=== PATIENT | female | born 1990 | race Caucasian/White ===

== ENCOUNTER → 2016-08-28 | Outpatient (CLI) | payer OTHER ==
[2016-08-28 11:59] LABS: BASO # 0.2 K/mm3 (0.0-0.2); BASO % 2.3 % (0.0-1.0); EOS # 0.1 K/mm3 (0.0-0.50); EOS % 1.9 % (0.0-3.0); LARGE UNSTAINED CELL # 0.1 K/mm3 (0.0-0.4); LARGE UNSTAINED CELL % 0.8 % (0.0-4.0); LYMPH # 1.7 K/mm3 (1.5-6.5); LYMPH % 23.9 % (24.0-44.0); MEAN CORPUSCULAR HEMOGLOBIN 28.7 pg (27.0-33.0); MEAN CORPUSCULAR HGB CONC 32.2 g/dl (32.0-36.5); MEAN CORPUSCULAR VOLUME 89.1 fl (80.0-96.0); MONO # 0.4 K/mm3 (0.0-0.8); MONO % 5.1 % (0.0-5.0); NEUTROPHILS # 4.6 K/mm3 (1.8-7.7); NEUTROPHILS % 65.9 % (36.0-66.0); PLATELET COUNT, AUTOMATED 206 k/mm3 (150-450); RED CELL DISTRIBUTION WIDTH 13.4 % (11.5-14.5)
[2016-08-28 12:24] LABS: ERYTHROCYTE SEDIMENTATION RATE 8 mm/hr (0-20)
[2016-08-30 00:06] LABS: Lyme Disease IgG/IgM Antibodie <0.91 ISR (0.00-0.90); Lyme Disease IgM Ab Quantitati <0.80 index (0.00-0.79)
== END | disposition home or self-care (01) ==
LOC: M SMT 08:24
PROVIDERS: ATTEND Physician Assistant
DX: M79.671 Pain in right foot (principal); N92.6 Irregular menstruation, unspecified; E55.9 Vitamin D deficiency, unspecified

== ENCOUNTER → 2016-08-28 | Outpatient (CLI) | payer OTHER ==
[2016-08-28 12:01] LABS: BASO # 0.2 K/mm3 (0.0-0.2); BASO % 2.6 % (0.0-1.0); EOS # 0.2 K/mm3 (0.0-0.50); EOS % 2.2 % (0.0-3.0); LARGE UNSTAINED CELL # 0.1 K/mm3 (0.0-0.4); LARGE UNSTAINED CELL % 0.7 % (0.0-4.0); LYMPH # 1.6 K/mm3 (1.5-6.5); LYMPH % 23.9 % (24.0-44.0); MEAN CORPUSCULAR HEMOGLOBIN 29.2 pg (27.0-33.0); MEAN CORPUSCULAR HGB CONC 32.8 g/dl (32.0-36.5); MONO # 0.3 K/mm3 (0.0-0.8); MONO % 4.7 % (0.0-5.0); NEUTROPHILS # 4.3 K/mm3 (1.8-7.7); NEUTROPHILS % 65.9 % (36.0-66.0); PLATELET COUNT, AUTOMATED 203 k/mm3 (150-450); RED CELL DISTRIBUTION WIDTH 13.5 % (11.5-14.5); WHITE BLOOD COUNT 6.6 K/mm3 (4.0-10.0)
== END ==
LOC: M SMT 08:22
PROVIDERS: ATTEND Family Medicine
DX: N92.6 Irregular menstruation, unspecified (principal); E55.9 Vitamin D deficiency, unspecified

== ENCOUNTER → 2017-06-17 | Outpatient (REF) | payer OTHER | LOC: M SFHCADAM 13:14 | PROVIDERS: ATTEND Family Medicine | DX: Z01.419 Encounter for gynecological examination (general) (routine) without abnormal findings (principal) ==

== ENCOUNTER → 2018-01-06 | Outpatient (REF) | payer OTHER ==
[2018-01-07 11:46] LABS: ALBUMIN 3.7 GM/DL (3.2-5.2); ALBUMIN/GLOBULIN RATIO 0.93 (1.00-1.93); ALKALINE PHOSPHATASE 58 U/L (45-117); ALT/SGPT 26 U/L (12-78); ANION GAP 9 MEQ/L (8-16); AST/SGOT 14 U/L (7-37); BILIRUBIN,TOTAL 0.4 MG/DL (0.2-1.0); BLOOD UREA NITROGEN 9 MG/DL (7-18); CALCIUM LEVEL 9.2 MG/DL (8.5-10.1); CARBON DIOXIDE LEVEL 24 MEQ/L (21-32); CHLORIDE LEVEL 107 MEQ/L (98-107); CREATININE FOR GFR 0.88 MG/DL (0.55-1.30); GLOMERULAR FILTRATION RATE > 60.0 (>60); GLUCOSE, FASTING 79 MG/DL (70-100); POTASSIUM SERUM 3.8 MEQ/L (3.5-5.1); SODIUM LEVEL 140 MEQ/L (136-145); TOTAL PROTEIN 7.7 GM/DL (6.4-8.2)
== END ==
LOC: M LAB REF 10:58
DX: M32.9 Systemic lupus erythematosus, unspecified (principal)
CPT/HCPCS: 80053

== ENCOUNTER → 2018-01-06 | Outpatient (REF) | payer OTHER ==
[2018-01-07 11:52] LABS: ALT/SGPT 25 U/L (12-78); AST/SGOT 13 U/L (7-37); CREATININE FOR GFR 0.91 MG/DL (0.55-1.30); GLOMERULAR FILTRATION RATE > 60.0 (>60)
[2018-01-07 12:28] LABS: HEMATOCRIT 40.9 % (36.0-47.0); HEMOGLOBIN 13.6 g/dl (12.0-15.5); MEAN CORPUSCULAR HEMOGLOBIN 28.8 pg (27.0-33.0); MEAN CORPUSCULAR HGB CONC 33.3 g/dl (32.0-36.5); MEAN CORPUSCULAR VOLUME 86.7 fl (80.0-96.0); PLATELET COUNT, AUTOMATED 279 10^3/uL (150-450); RED BLOOD COUNT 4.72 10^6/uL (4.00-5.40); RED CELL DISTRIBUTION WIDTH 13.3 % (11.5-14.5); WHITE BLOOD COUNT 7.9 10^3/uL (4.0-10.0)
== END ==
LOC: M LAB REF 11:00
DX: Z79.899 Other long term (current) drug therapy (principal); M32.9 Systemic lupus erythematosus, unspecified
CPT/HCPCS: 84460

== ENCOUNTER → 2018-03-06 | Outpatient (CLI) | payer OTHER | LOC: M ADAMS 10:54 | DX: M32.9 Systemic lupus erythematosus, unspecified (principal) | CPT/HCPCS: 71046 ==

== ENCOUNTER → 2018-07-13 | Outpatient (REF) | payer OTHER | LOC: M SFHCPLAZ 17:34 | PROVIDERS: ATTEND Dermatology | DX: D23.0 Other benign neoplasm of skin of lip (principal) ==

== ENCOUNTER → 2018-12-29 | Outpatient (CLI) | payer OTHER ==
--- NOTE | 2018-12-29 15:26 | REP ---
RIGHT KNEE, FIVE VIEWS: HISTORY: Knee pain. There is no acute fracture or dislocation. The joint spaces are normal in appearance. IMPRESSION: There is no acute fracture or dislocation. Electronically Signed by Jim Pimentel MD 12/29/2018 03:33 P
== END ==
LOC: M ADAMS 13:59
PROVIDERS: ATTEND Family Medicine
DX: M25.561 Pain in right knee (principal)
CPT/HCPCS: 73564; G0463

== ENCOUNTER 2019-03-22 23:11 | Emergency (ER) | payer OTHER ==
[~2019-03-22] VITALS: Ht 167.6 cm; Wt 95.6 kg
[2019-03-22 23:12] VITALS: BP 139/79
--- NOTE | 2019-03-23 00:07 | REPVR ---
EXAM: US Duplex Right Lower Extremity Veins, Limited EXAM DATE/TIME: 03/22/2019 11:38 PM CLINICAL HISTORY: 29 years old, female; Pain; Leg, lower; Right; Additional info: R/O dvt TECHNIQUE: Imaging protocol: Real-time Duplex ultrasound of the Right Lower Extremity with 2-D rubin scale, color Doppler flow and spectral waveform analysis with image documentation. Limited exam was focused on the right lower extremity veins. COMPARISON: No relevant prior studies available. FINDINGS: Right deep veins: Unremarkable. The common femoral, femoral and popliteal veins are patent without thrombus. Normal Doppler waveforms. Normal compressibility and/or augmentation response. Right superficial veins: Unremarkable. Saphenofemoral junction is patent without thrombus. Soft tissues: Unremarkable. IMPRESSION: No sonographic evidence of deep vein thrombosis. Electronically signed by: Richard Oconnor On 03/23/2019 00:06:58 AM
== END 2019-03-23 01:14 | disposition home or self-care (01) ==
LOC: M ED 23:11
DX: S86.911A Strain of unspecified muscle(s) and tendon(s) at lower leg level, right leg, initial encounter (principal); X58.XXXA Exposure to other specified factors, initial encounter; Y92.89 Other specified places as the place of occurrence of the external cause; M32.9 Systemic lupus erythematosus, unspecified

== ENCOUNTER → 2019-09-21 | Outpatient (REF) | payer OTHER ==
[2019-09-21 13:44] LABS: TOTAL 25(OH) VITAMIN D 15.3 NG/ML (30.0-100.0)
== END ==
LOC: M SFHCADAM 09:23
PROVIDERS: ATTEND Family Medicine
DX: N92.3 Ovulation bleeding (principal); R11.0 Nausea; M32.9 Systemic lupus erythematosus, unspecified

== ENCOUNTER → 2019-10-25 | Outpatient (REF) | payer OTHER ==
[2019-10-25 18:09] LABS: HEMOGLOBIN 15.2 g/dl (12.0-15.5); MEAN CORPUSCULAR HEMOGLOBIN 29.1 pg (27.0-33.0); RED BLOOD COUNT 5.23 10^6/uL (4.00-5.40)
[2019-10-25 19:26] LABS: CHLAMYDIA DNA AMPLIFICATION NEGATIVE (NEGATIVE); GC DNA AMPLIFICATION NEGATIVE (NEGATIVE)
[2019-10-26 11:27] LABS: HEPATITIS B SURFACE ANTIGEN NEGATIVE (NEGATIVE); HEPATITIS C VIRUS ABY INDEX 0.1 INDEX (<0.8); HIV 1&2 SCREEN CENTAUR NEGATIVE (NEGATIVE); RUBELLA IgG QUALITATIVE IMMUNE (IMMUNE)
== END ==
LOC: M PLALAB 15:20
PROVIDERS: ATTEND Advanced Practice Midwife
DX: Z34.01 Encounter for supervision of normal first pregnancy, first trimester (principal)

== ENCOUNTER → 2019-11-16 | Outpatient (CLI) | payer OTHER | LOC: M PLALAB 14:57 | PROVIDERS: ATTEND Advanced Practice Midwife | DX: Z34.82 Encounter for supervision of other normal pregnancy, second trimester (principal) ==

== ENCOUNTER → 2019-12-27 | Outpatient (CLI) | payer OTHER ==
--- NOTE | 2019-12-28 02:44 | REP ---
Clinical: Anatomical evaluation. Comparison: None . Findings: Examination demonstrates a single live intrauterine in cephalic presentation. motion is identified by technologist. Placenta is noted posterior, grade I, and low-lying without evidence for abruption. Amniotic fluid volume is normal. Cervix measures 3.9 cm in length and appears closed. No evidence for nuchal cord. Gestational age by LMP 20 weeks 5 days with ALMA 05/10/2020 . Gestational age by current measurements 20 weeks 3 days with ALMA 05/12/2020 . FHR equals 146 beats per minute. BPD 4.7 cm 20 weeks 1 day HC 17.8 cm 20 weeks 2 days AC 14.9 cm 20 weeks 1 day FL 3.7 cm 21 weeks 4 days HL 3.3 cm 21 weeks 2 days HC/AC ratio 1.20 Estimated weight 374 grams ( 48th percentile). Anatomical assessment demonstrates normal structures including cranium, choroid plexus, cavum, cerebellum/posterior fossa, facial features, lungs, four-chamber heart/ventricular outflow tracts, diaphragm, stomach, cord insertion/three-vessel cord, kidneys/bladder, spine, and extremities. Impression: 1. Posterior grade one low-lying placenta 1.3 cm from the closed internal os. 2. Live intrauterine in cephalic presentation demonstrating appropriate interval growth. 3. Anatomical assessment is complete and normal.
== END ==
LOC: M WHC 07:53
PROVIDERS: ATTEND Advanced Practice Midwife
DX: Z34.02 Encounter for supervision of normal first pregnancy, second trimester (principal)

== ENCOUNTER → 2020-02-03 | Outpatient (CLI) | payer OTHER ==
--- NOTE | 2020-02-03 11:15 | REP ---
OB ULTRASOUND: Real-time sonographic evaluation of gravid uterus performed utilizing transabdominal and endovaginal technique. There is a single living intrauterine gestation. Estimated gestational age is reportedly 26 weeks 1 day, EDC 05/10/2020. The heart rate is 136 beats per minute. The cervix is closed and measures 3.8 cm in length. position is breech. The placenta is posterior and grade 0 with no previa or abruption. Amniotic fluid appears within normal limits. Edge of the placenta is 3.3 cm from the internal cervical os.
== END ==
LOC: M WHC 08:05
PROVIDERS: ATTEND Advanced Practice Midwife
DX: Z36.89 Encounter for other specified antenatal screening (principal); Z3A.26 26 weeks gestation of pregnancy
CPT/HCPCS: 36415; 76815; 76817; 82950; 85027; 86850; 86900; 86901; J2790

== ENCOUNTER → 2020-02-03 | Outpatient (REF) | payer OTHER ==
[2020-02-03 11:57] LABS: HEMATOCRIT 40.2 % (36.0-47.0); HEMOGLOBIN 13.1 g/dl (12.0-15.5); MEAN CORPUSCULAR HEMOGLOBIN 29.6 pg (27.0-33.0); MEAN CORPUSCULAR HGB CONC 32.6 g/dl (32.0-36.5); MEAN CORPUSCULAR VOLUME 90.7 fl (80.0-96.0); PLATELET COUNT, AUTOMATED 229 10^3/uL (150-450); RED BLOOD COUNT 4.43 10^6/uL (4.00-5.40)
== END ==
LOC: M PLALAB 08:45
PROVIDERS: ATTEND Advanced Practice Midwife
DX: Z36.89 Encounter for other specified antenatal screening (principal)

== ENCOUNTER → 2020-03-14 | Outpatient (CLI) | payer OTHER ==
[~2020-03-14] MED LIST: ASPI81CH33 PO; MULTTAB20 PO; PLAQ200T4 PO
--- NOTE | 2020-04-06 10:52 | REP ---
OBSTETRICAL ULTRASOUND CLINICAL: Growth evaluation. COMPARISON: 02/03/2020. TECHNIQUE: Transabdominal obstetrical ultrasound with color Doppler evaluation. FINDINGS: Ultrasound examination demonstrates single live advanced gestation in breech presentation. motion was identified by the technologist. heart rate equals 146 beats per minute. Placenta noted posteriorly, grade 2, and without placenta previa or abruption. Amniotic fluid volume is normal (LYSSA equals 10.9 cm). Cervix measures 4.1 cm in length and appears closed. Gestational age by current biometrical measurements 32 weeks 0 days with estimated date of delivery 05/09/2020. Estimated weight 1768 grams (27th percentile). IMPRESSION: Single live advanced gestation in breech presentation demonstrating appropriate estimated weight and growth. MTDD
== END ==
LOC: M WHC 16:02
PROVIDERS: ATTEND Advanced Practice Midwife
DX: O26.893 Other specified pregnancy related conditions, third trimester (principal); M32.9 Systemic lupus erythematosus, unspecified; Z3A.32 32 weeks gestation of pregnancy; O32.1XX0 Maternal care for breech presentation, not applicable or unspecified
CPT/HCPCS: 76815; G0463

== ENCOUNTER → 2020-04-04 | Outpatient (CLI) | payer OTHER ==
--- NOTE | 2020-04-12 15:49 | REP ---
LIMITED OBSTETRICAL ULTRASOUND CLINICAL: Growth evaluation. COMPARISON: 03/14/2020. TECHNIQUE: Transabdominal obstetrical ultrasound with color Doppler evaluation. FINDINGS: Ultrasound examination demonstrates a single live intrauterine in breech presentation. motion was identified by the technologist. Placenta noted posteriorly, grade 2, and without placenta previa or abruption. Cervix measures 3.4 cm in length and appears closed. Amniotic fluid volume is normal. LYSSA equals 10.8 cm. heart rate equals 135 beats per minute. MEASUREMENTS: BPD 85 mm 34 weeks 1 day HC 324 mm 36 weeks 5 days AC 292 mm 33 weeks 2 days FL 71.7 mm 36 weeks 6 days HL 63.4 mm 36 weeks 6 days Estimated weight 2480 grams (40th percentile). IMPRESSION: 1. Single live advanced gestation in breech presentation demonstrating appropriate estimated weight and growth. 2. Amniotic fluid volume normal. MTDD
== END ==
LOC: M WHC 15:03
PROVIDERS: ATTEND Advanced Practice Midwife
DX: O32.1XX0 Maternal care for breech presentation, not applicable or unspecified (principal); Z3A.36 36 weeks gestation of pregnancy

== ENCOUNTER → 2020-04-12 | Outpatient (REF) | payer OTHER | LOC: M LAB REF 16:52 | PROVIDERS: ATTEND Advanced Practice Midwife | DX: Z34.80 Encounter for supervision of other normal pregnancy, unspecified trimester (principal); Z3A.00 Weeks of gestation of pregnancy not specified ==

== ENCOUNTER 2020-04-29 05:41 | Inpatient (IN) | payer OTHER ==
[~2020-04-29] VITALS: Ht 167.6 cm; Wt 102.7 kg
[2020-04-29] MEDS ORDERED: LACTATED RINGER'S 1000 ML IV STA (06:44)
[2020-04-29] MEDS ORDERED: LR 1,000 ML IV SCH ×2 (06:44→09:45)
[2020-04-29] MEDS ORDERED: ceFAZolin SOD 2 GM in IV 1 EA IV ONE (06:45)
[2020-04-29] MEDS ORDERED: BICITRA 30ML SOLN UDC PO ONE (06:45)
[2020-04-29 07:03] LABS: HEMOGLOBIN 13.4 g/dl (12.0-15.5); MEAN CORPUSCULAR HGB CONC 31.9 g/dl (32.0-36.5); MEAN CORPUSCULAR VOLUME 87.7 fl (80.0-96.0); PLATELET COUNT, AUTOMATED 220 10^3/uL (150-450); RED BLOOD COUNT 4.79 10^6/uL (4.00-5.40); WHITE BLOOD COUNT 10.5 10^3/uL (4.0-10.0)
[2020-04-29] MEDS ORDERED: ONDANSETRON 4MG/2ML VIAL As Ordered ONE (08:10)
[2020-04-29] MEDS ORDERED: MORPHINE PRES-FREE INJ 10 MG/10 ML VIAL (J2274) As Ordered ONE (08:10)
[2020-04-29] MEDS ORDERED: OXYTOCIN INJ 10 UNITS/ML VIAL (J2590) As Ordered ONE (08:23)
[2020-04-29] MEDS ORDERED: ePHEDrine SULFATE 25 MG/5 ML(5MG/ML) SYRINGE As Ordered ONE (08:29)
[2020-04-29] MEDS ORDERED: MEPERIDINE 50 MG/ML 1ML VIAL (J2175) As Ordered ONE (08:42)
[2020-04-29] MEDS ORDERED: KETOROLAC 60MG 2ML VIAL As Ordered ONE (09:05)
[2020-04-29] MEDS ORDERED: PERCOCET 5MG/325MG TAB PO PRN (09:15)
[2020-04-29] MEDS ORDERED: MEASLES,MUMPS,RUBELLA VACCINE INJ (MMR-II) (90707) SC SCH (09:15)
[2020-04-29] MEDS ORDERED: RHOGAM 300 MCG (1500 IU) INJ (J2790) IM SCH (09:15)
[2020-04-29] MEDS: LR 1,000 ML IV SCH ×2 (09:30→13:48)
[2020-04-29] MEDS ORDERED: OXYTOCIN DRIP 30 UNITS in IV 1 EA IV SCH (09:30)
[2020-04-29] MEDS ORDERED: OXYTOCIN 30 UNITS IN 0.9% NaCl 500ML IV BAG (J2590) As Ordered ONE (09:30)
[2020-04-29] MEDS ORDERED: METOCLOPRAMIDE INJ 10MG/2ML VIAL (J2765 PER 1) IV PRN (09:45)
[2020-04-29] MEDS ORDERED: fentaNYL 100 MCG/2 ML INJECTION (J3010) IV PRN (09:45)
[2020-04-29] MEDS ORDERED: oxyCODONE 5MG TAB PO PRN (09:45)
[2020-04-29] MEDS ORDERED: ONDANSETRON 4MG/2ML VIAL IV PRN (09:45)
[2020-04-29] MEDS ORDERED: PERCOCET 5MG/325MG TAB As Ordered ONE (10:12)
[2020-04-29] MEDS: PERCOCET 5MG/325MG TAB PO PRN (10:13)
[2020-04-29 10:30] VITALS: BP 120/69
[2020-04-29 11:00] VITALS: BP 111/62
[2020-04-29 12:30] VITALS: BP 109/60
[2020-04-29 13:34] VITALS: BP 102/51
[2020-04-29] MEDS: KETOROLAC 30 MG/ML 1ML VIAL IV SCH ×2 (15:07→20:19)
[2020-04-29 17:58] VITALS: BP 106/52
[2020-04-29] MEDS: DOCUSATE SODIUM 100 MG CAP PO PRN (18:13)
[2020-04-29] MEDS: HYDROXYCHLOROQUINE 200 MG TAB PO SCH (20:19)
[2020-04-29 22:00] VITALS: BP 94/55
[2020-04-30] VITALS (7 sets, daily range): BP systolic 101–143; BP diastolic 50–88
[2020-04-30] MEDS: KETOROLAC 30 MG/ML 1ML VIAL IV SCH (03:31)
[2020-04-30] MEDS: PERCOCET 5MG/325MG TAB PO PRN ×3 (06:08→20:44)
[2020-04-30 07:18] LABS: HEMATOCRIT 32.1 % (36.0-47.0); MEAN CORPUSCULAR HEMOGLOBIN 29.3 pg (27.0-33.0); MEAN CORPUSCULAR HGB CONC 33.3 g/dl (32.0-36.5); MEAN CORPUSCULAR VOLUME 87.9 fl (80.0-96.0); PLATELET COUNT, AUTOMATED 176 10^3/uL (150-450); RED BLOOD COUNT 3.65 10^6/uL (4.00-5.40)
[2020-04-30 07:25] LABS: HEMOGLOBIN 10.7 g/dl (12.0-15.5)
[2020-04-30] MEDS: HYDROXYCHLOROQUINE 200 MG TAB PO SCH ×2 (10:05→20:05)
[2020-04-30] MEDS: PRENATAL VITAMINS CHEWABLE TABLET PO SCH (10:05)
[2020-04-30] MEDS: IBUPROFEN 800 MG TAB PO SCH ×2 (11:06→18:32)
[2020-04-30] MEDS: DOCUSATE SODIUM 100 MG CAP PO PRN (20:05)
[2020-05-01 01:58] VITALS: BP 113/61
[2020-05-01] MEDS: IBUPROFEN 800 MG TAB PO SCH ×2 (03:21→11:37)
[2020-05-01 05:35] VITALS: BP 110/58
[2020-05-01] MEDS: PERCOCET 5MG/325MG TAB PO PRN ×2 (07:00→11:38)
[2020-05-01 08:15] VITALS: BP 110/58
[2020-05-01] MEDS: PRENATAL VITAMINS CHEWABLE TABLET PO SCH (09:38)
[2020-05-01] MEDS: HYDROXYCHLOROQUINE 200 MG TAB PO SCH (09:38)
--- NOTE | 2020-05-08 15:21 | HPE ---
DATE OF ADMISSION: 04/29/2020 HISTORY OF PRESENT ILLNESS: A 30-year-old, G1, P0, female at 38 and 3/7 weeks gestation, who presents with spontaneous loss of fluid at 4:30 a.m. on the day of admission. She continued to leak fluid. She had cramping and mild contractions start. She denies vaginal bleeding. PAST MEDICAL HISTORY: 1. Glaucoma. 2. Anxiety disorder. 3. PCOS. 4. Systemic lupus erythematosus. PAST SURGICAL HISTORY: [place] teeth extraction 2007. ALLERGIES: 1. Wellbutrin. 2. Zoloft. SOCIAL HISTORY: The patient is . 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 She denies cigarettes, alcohol or drug use. FAMILY HISTORY: Noncontributory. PHYSICAL EXAMINATION: VITALS: Blood pressure 136/78, pulse 84. GENERAL: She is in no apparent distress. HEAD AND NECK: Normal. LUNGS: Clear. HEART: Regular rate and rhythm. ABDOMEN: Nontender, gravid. heart tones category 1. Contractions irregular and mild. STERILE VAGINAL EXAM: Grossly ruptured, clear fluid noted, Nitrazine positive. Transabdominal ultrasound; breech fetus. LABORATORY DATA: GBS positive. Blood type B-. ASSESSMENT: A 30-year-old, G1, P0, female at 38 and 3/7 weeks gestation with a breech fetus and spontaneous rupture of membranes. PLAN: To proceed with primary section due to breech presentation. Consent signed. Expectation reviewed. [facility]
--- NOTE | 2020-05-11 12:48 | RO ---
DATE OF OPERATION: 04/29/2020 PREOPERATIVE DIAGNOSIS: 38 and 3/7 weeks gestation, breech presentation, spontaneous rupture of membranes. POSTOPERATIVE DIAGNOSIS: 38 and 3/7 weeks gestation, breech presentation, spontaneous rupture of membranes. PROCEDURE: Primary low-transverse section. SURGEON: Jim Cheema MD ANESTHESIA: Spinal. ESTIMATED BLOOD LOSS: 600 mL. URINE OUTPUT: 50 mL. FINDINGS: 3450 grams, 7 pounds, 10 ounce male , Apgars 9 and 10, valerio breech presentation. Normal uterus, fallopian tubes, and ovaries. OPERATIVE SUMMARY: The patient was taken to the operating room where spinal anesthesia was induced. She was prepped and draped in a sterile fashion in the supine position. A Morrissey catheter was placed. A Pfannenstiel skin incision was made with a scalpel and carried through to the fascia. The fascia was nicked and extended. The peritoneal cavity was entered. A Mobius retractor was placed. Curvilinear incision was made in the lower uterine segment until clear fluid was noted. This was extended manually. The was delivered from the valerio breech position using standard maneuvers without difficulty. The cord was doubly clamped and cut. The infant was handed off to the waiting nurses. The placenta was expressed. The uterus was closed with 0-Vicryl in a running locking fashion. A second imbricating layer of 0-Vicryl was placed. The peritoneum was closed with 2-0 Vicryl. The fascia was closed with 0-Vicryl. The deep layer was irrigated and closed with 2-0 chromic. The skin was closed with 4-0 Monocryl with subcuticular sutures. Sponge, instrument, and needle counts were correct. MTDD
--- NOTE | 2020-05-14 11:02 | DS ---
DATE OF ADMISSION: 04/29/2020 DATE OF DISCHARGE: 05/01/2020 DISCHARGE DIAGNOSIS: Primary section, postoperative day #2, stable condition. SURGEON: Jim Cheema MD HISTORY: Antonia is a 30-year-old that underwent a primary section due to breech presentation and spontaneous rupture of membranes at 38 weeks and 3/7 days. Her surgery was uncomplicated. She delivered a live male weighing 7 pounds, 10 ounces, scores 9 and 10. Her estimated blood loss was 600 mL. Her postoperative course has been uncomplicated. Her pain has been well managed with by mouth pain medications. She is tolerating by mouth fluids and regular diet. She is voiding without difficulty and passing flatus. She has been out of bed for self-care, perineal care, and infant care. She has initiated . OBJECTIVE: Vital signs are stable today. Temperature 98.3, pulse 84, respirations 17, blood pressure 110/58. Preoperative CBC 04/29/2020: Hemoglobin 13.4, hematocrit 42, platelets 222. Postoperative CBC 04/30/2020: Hemoglobin 10.7, hematocrit 32.1, platelets 176. Her breasts are soft and nontender, nipples are intact, there is no cracks, no bleeding. Her abdomen with fundus firm at umbilicus. Incision with dressing in place, there is no drainage noted. Her perineum is intact with lochia rubra, scant. Bilateral lower extremities +2 pitting edema noted. PLAN: Discharge the patient home today. She is to followup at [facility] for a 2 week incision check and an 8 week visit. Prescriptions for pain medications have been e-prescribed by Dr. Jim Cheema to her pharmacy. I did review discharge instructions that include breast care, incision care, perineal care, pelvic rest, activity and lifting restrictions, signs and symptoms of mastitis, access to care, and other danger signs. The patient has had all of her questions answered and does desire discharge. DAVID
== END 2020-05-01 12:25 | disposition home or self-care (01) | DRG 773 ==
LOC: M LDO 05:41 → M LDI 06:37 → M OBS 10:25
PROVIDERS: ADMIT Specialist; ATTEND Specialist
PROC: 10D00Z1 Extraction of Products of Conception, Low, Open Approach (ICD-10-PCS; principal; 2020-04-29 08:00)
DX: O32.1XX0 Maternal care for breech presentation, not applicable or unspecified (principal); Z3A.38 38 weeks gestation of pregnancy; O99.344 Other mental disorders complicating childbirth; F41.9 Anxiety disorder, unspecified; Z37.0 Single live birth

== ENCOUNTER → 2020-09-24 | Outpatient (REF) | payer OTHER | LOC: M SFHCADAM 11:10 | PROVIDERS: ATTEND Family Medicine | DX: Z12.4 Encounter for screening for malignant neoplasm of cervix (principal) | CPT/HCPCS: G0123; G0463 ==

== ENCOUNTER → 2024-09-02 | Outpatient (CLI) | payer OTHER ==
[2024-09-02 11:42] LABS: BASO % 0.6 % (0.0-1.0); EOS # 0.2 10^3/uL (0.0-0.5); EOS % 2.5 % (0.0-3.0); HEMATOCRIT 45.5 % (36.0-47.0); HEMOGLOBIN 14.9 g/dl (12.0-15.5); LYMPH # 1.6 10^3/uL (1.5-5.0); LYMPH % 24.6 % (24.0-44.0); MEAN CORPUSCULAR HEMOGLOBIN 29.9 pg (27.0-33.0); MEAN CORPUSCULAR HGB CONC 32.7 g/dl (32.0-36.5); MEAN CORPUSCULAR VOLUME 91.4 fl (80.0-96.0); MONO # 0.4 10^3/uL (0.0-0.8); NEUTROPHILS # 4.2 10^3/uL (1.5-8.5); NEUTROPHILS % 66.1 % (36.0-66.0); PLATELET COUNT, AUTOMATED 238 10^3/uL (150-450); RED BLOOD COUNT 4.98 10^6/uL (4.00-5.40); WHITE BLOOD COUNT 6.4 10^3/uL (4.0-10.0)
[2024-09-02 13:48] LABS: ALBUMIN 3.7 G/DL (3.2-5.2); ALKALINE PHOSPHATASE 56 U/L (35-104); ALT/SGPT 21 U/L (7.0-40); AST/SGOT 11 U/L (<34); BILIRUBIN,TOTAL 1.2 MG/DL (0.3-1.2); BLOOD UREA NITROGEN 9 MG/DL (9-23); CALCIUM LEVEL 9.3 MG/DL (8.5-10.1); CARBON DIOXIDE LEVEL 27 MMOL/L (20-31); CHLORIDE LEVEL 106 MMOL/L (98-107); CHOLESTEROL LEVEL 186 MG/DL (<200); CHOLESTEROL RISK RATIO 4.85 (<5); CREATININE FOR GFR 0.83 MG/DL (0.55-1.30); FREE T4 1.12 NG/DL (0.89-1.76); GLOMERULAR FILTRATION RATE > 60.0 (>60); GLUCOSE, FASTING 83 MG/DL (60-100); HDL CHOLESTEROL 38.3 MG/DL (>40); LDL CHOLESTEROL 127.1 MG/DL (<100); NON-HDL-C 147.7 MG/DL; POTASSIUM SERUM 4.8 MMOL/L (3.5-5.1); SODIUM LEVEL 143 MMOL/L (136-145); THYROID STIMULATING HORMONE 1.983 uIU/ML (0.55-4.78); TOTAL PROTEIN 7.2 G/DL (5.7-8.2); TRIGLYCERIDES LEVEL 103 MG/DL (<150)
== END ==
LOC: M PLALAB 07:59
PROVIDERS: ATTEND Family Medicine
DX: Z00.00 Encounter for general adult medical examination without abnormal findings (principal)